=== PATIENT | male | born 1955 | race Two or more races ===

== ENCOUNTER 2018-05-28 08:05 | Emergency (ER) | payer MEDICARE, OTHER ==
[~2018-05-28 08:05] MED LIST: ACE500 PO; AML5 PO; ASP325 PO; CYCL10TA29 PO; GAB300 PO; GLIP-137 PO; LOR7.5/325 PO; METF-415 PO; NAP500 PO; ROS4 PO
--- NOTE | 2018-05-28 08:08 | ER Report ---
History and Physical Time Seen By MD: 08:08 HPI/ROS 62-year-old male fell onto shoulder. Has full range of motion but pain in his shoulder and his upper back. No other injuries or complaints. Remainder of the 14 system rev: Yes Allergies: Coded Allergies: iodine (Verified Adverse Reaction, Mild, FEELS HOT, 11/15/12) Home Meds Reported Medications Gabapentin (Neurontin) 300 Mg Cap, 300 MG PO BID 11/15/12 Acetaminophen (Tylenol) 500 Mg Tab, 500 MG PO QID 11/15/12 Aspirin (Aspirin) 325 Mg Tab, 325 MG PO ONCE, 0 Refills 07/23/09 Metformin Hcl (Metformin Hcl) 850 Mg Tablet, 850 MG PO TID PRN, 0 Refills 07/23/09 Glipizide (Glipizide) 10 Mg Tablet, 10 MG PO BID, 0 Refills 07/23/09 Discontinued Reported Medications Naproxen (NAPROSYN (OR EQUIV)) 500 Mg Tab, 500 MG PO BID, #30 11/15/12 Acetaminophen/Hydrocodone (Lortab 7.5/325 Mg) 7.5 Mg/325 Mg Tab, 1 TAB PO Q4-6H, #15 11/15/12 Cyclobenzaprine Hcl (FLEXERIL (OR EQUIV)) 10 Mg Tab, 10 MG PO QHS, #15 11/15/12 Amlodipine Besylate (Norvasc) 5 Mg Tab, 5 MG PO QDAY, 0 Refills 07/23/09 Reviewed Nurses Notes: Yes Old Medical Records Reviewed: Yes Hx Smoking: No Hx Substance Use Disorder: No Hx Alcohol Use: No Constitutional Vital Sign - Last 24 Hours 05/28/18 05/28/18 05/28/18 05/28/18 08:05 08:09 08:09 08:30 Temp 97.4 Pulse ??? 75 Resp 20 B/P (MAP) 141/78 141/78 (99) 144/79 (100) Pulse Ox 95 O2 Delivery Room Air 05/28/18 05/28/18 08:35 09:00 Pulse 73 B/P (MAP) 156/90 (112) Pulse Ox 96 Physical Exam General Appearance: The patient is alert, has no immediate need for airway protection and no current signs of toxicity. Eyes: Pupils equal and round no injection. Respiratory: Chest is non tender, lungs are clear to auscultation. Cardiac: regular rate and rhythm Gastrointestinal: Abdomen is soft and non tender, no masses, bowel sounds normal. Musculoskeletal: TTP at the left trapezius muscle Neck: Neck is supple and non tender. Extremities have full range of motion and are non tender. Skin: No rashes or lesions. Medical Decision Making ED Course/Re-evaluation ED Course X-rays negative for fracture or dislocation. Painlessly from a muscle strain of the trapezius muscle. No head injury or C-spine pain or injury. All neuro exam. We will treat pain with NSAIDs. Decision to Disposition Date: May 28, 2018 Decision to Disposition Time: 09:17 Depart Departure Latest Vital Signs Vital Signs Date Time Temp Pulse Resp B/P (MAP) Pulse Ox O2 Delivery O2 Flow Rate FiO2 05/28/18 09:00 156/90 (112) 05/28/18 08:35 73 96 05/28/18 08:09 97.4 20 Room Air Impression: Primary Impression: Shoulder contusion Additional Impression: Trapezius muscle strain Condition: Improved Disposition: HOME OR SELF-CARE Referrals: JONO FRAZIER MD (PCP) Patient Instructions: Shoulder Sprain (ED) Problem Qualifiers Primary Impression: Shoulder contusion Encounter type: initial encounter Laterality: right Qualified Codes: S40.011A - Contusion of right shoulder, initial encounter Additional Impression: Trapezius muscle strain Encounter type: initial encounter Laterality: right Qualified Codes: S46.811A - Strain of other muscles, fascia and tendons at shoulder and upper arm level, right arm, initial encounter ROSENDA BUSTILLO MD May 28, 2018 08:08
--- NOTE | 2018-05-28 08:51 | RADIOLOGY IMAGING REPORT ---
FACILITY: [facility] PATIENT NAME: Ismael Love : 1955 MR: [id number] V: [id number] EXAM DATE: ORDERING PHYSICIAN: ROSENDA BUSTILLO TECHNOLOGIST: Location: [facility] [place] Patient: Ismael Love : 1955 Visit/Account:[id number] Date of Sevice: 05/28/2018 SHOULDER MIN 2 VIEWS RIGHT HISTORY: Fall onto right shoulder ADDITIONAL HISTORY: History of biceps tear. History of rotator cuff tear COMPARISON: None. FINDINGS: 2 views were obtained of the right shoulder. There is no fracture or dislocation. [place] device is pr esent in the humeral head. Soft tissue calcification present near the site of insertion of the supras pinatus tendon. AC joint is narrowed. Coracoclavicular distance is within normal limits. There is a downsloping acrom ion with small osteophytes, findings may be contributing to an impingement type syndrome, clinically correlate. Clavicle and visualized ribs are within normal limits. IMPRESSION: 1. No evidence of acute fracture or dislocation of the right shoulder. 2. No radiographic evidence of an acute AC joint injury. 3. Downsloping acromion and associated osteophytes which could contribute to an impingement type synd braulio, clinically correlate. Report Dictated By: Tamara Li MD at 05/28/2018 8:45 AM Report E-Signed By: Tamara Li MD at 05/28/2018 8:47 AM WSN:[id number]
[2018-05-28] MEDS ORDERED: KETOROLAC 60 MG/2 ML VIAL IM ONE (08:55)
[2018-05-28 09:00] VITALS: BP 156/90
== END 2018-05-28 09:26 | disposition home or self-care (01) ==
LOC: ER 08:34
DX: S40.011A Contusion of right shoulder, initial encounter (principal); S46.811A Strain of other muscles, fascia and tendons at shoulder and upper arm level, right arm, initial encounter
CPT/HCPCS: 73030; 96372; 99284; A4565; J1885; 99283